=== PATIENT | male | born 1995 | race Caucasian/White ===

== ENCOUNTER 2018-08-18 23:18 | Observation (INO) ==
--- NOTE | 2018-08-19 00:27 | DR.GENAD ---
HPI Time Seen Time Seen by Provider: 08/19/18 00:22 HPI Comment HPI Comment: PATIENT IS 22YR OLD WHITE MALE WHO WORK AT [employer], WHERE THEY WORK IN HIGH ENVIR[employer]. HE GOT SICK TODAY AND STARTED HAVING INCREASIN GENERALIZE CRAMPING PAIN 6/10 ASSOCIATED WITH NAUSEA AND VOMITING. PATIENT IS WEAK, DIZZY A ND NOT FEELING WELL. NOT HOLDING DOWN FLUIDS. NO FEVER OR DYSURIA. Complaint/Symptoms Chief Complaint Doctors Comments: GENERALIZE PAIN AND WEAKNESS, MUSCLE CRAMPS AND NAUSEA AND VOMITING. Nurses notes reviewed Nurses Notes Review: Yes Source History Provided: Patient and Family Member Mode of Arrival Mode of Arrival: Wheelchair Timing Came on: Suddenly Duration Duration: Constant Duration: Days Location Location: GENERALIZE. Severity Severity: Severe Modifying Factors Worsens:: MOVEMENT Improves:: LYING STILL. 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 PMH PMH Past Surgical History: No Social History Do you use any recreational Drugs:: No ROS Review of Systems Constitutional: No Symptoms Reported, See HPI, Weakness, Fatigue and Loss of Appetite; negative Chills and Fever Eyes: No Symptoms Reported and See HPI; negative Eye Pain, Blurred Vision and Discharge ENTM: No Symptoms Reported, See HPI and Pulling on Ears; negative Ear Pain, Nose Discharge, Nose Congestion and Throat Pain Respiratoy: No Symptoms Reported and See HPI; negative Moist Cough, Short of Breath and Wheezing Cardiovascular: No Symptoms Reported and See HPI; negative Chest Pain, Edema and Palpitations Gastrointestinal/Abdominal: See HPI, Abdominal Pain, Nausea and Vomiting; negative Constipation and Diarrhea Genitourinary: No Symptoms Reported and See HPI; negative Dysuria, Frequency and Hematuria Neurological: No Symptoms Reported, See HPI, Headache and Dizziness; negative Seizure and Weakness Musculoskeletal: See HPI, Back Pain and Muscle Pain; negative Neck Pain Integumentary: See HPI and Dryness; negative Rash, Bruises and Juandice Hematologic/Lymphatic: No Symptoms Reported and See HPI; negative Easy Bruising, Swollen Glands and Lymphadenopathy Endocrine: No Symptoms Reported and See HPI; negative Flushing, Increased Thirst, Increased Urine and Decreased Appetite Psychiatric: No Symptoms Reported and See HPI All Other Systems: Reviewed and Negative PE Vital Signs Vitals: Temperature 97.4 F Pulse Rate [Left Brachial] 65 Pulse Rate 79 Respiratory Rate 18 Blood Pressure [Left Arm] 99/55 Blood Pressure 121/84 O2 Sat by Pulse Oximetry 97 General Limitations: No Limitations General Appearance: Alert and In No Apparent Distress; negative In Distress Head Head Exam: Normal Inspection, Atraumatic and Normocephalic Eyes Eye exam: Normal Appearance and PERRL; negative Scleral Icterus and Conjunctival Injection ENT ENT Exam: Normal Exam, Normal Oropharynx, Normal External Ear Exam, Mucous Membranes Dry and TM's Normal Bilaterally External Ear Exam: Normal External Inspection; negative Mastoid Tenderness, Pain with Movement and External Tenderness TM/Canal Exam: Bilateral: Normal Nose Exam: Normal Nose Exam; negative Sinus Tenderness, Nasal Deviation and Septal Hematoma Mouth Exam: Normal Inspection; negative Trismus, Lip Swelling and Tongue Swelling Throat Exam: Normal Inspection; negative Tonsillar Erythema, Tonsillomegaly and Tonsillar Exudate Neck Neck Exam: Normal Inspection, Full ROM and Trachea Midline; negative Tenderness, Meningismus and Lymphadenopathy Chest Chest Inspection: Normal Inspection and Symmetric Chest Wall Rise; negative Tenderness and Rash Respiratory Respiratory Exam: Normal Lung Sounds Bilat; negative Accessory Muscle Use, Chest Wall Tenderness and Respiratory Distress Respiratory Exam: Bilateral: Clear to Auscultation Cardiovascular Cardiovascular Exam: Regular Rate, Normal Rhythm and Normal Heart Sounds; negative Systolic Murmur and Diastolic Murmur Abdominal Exam Abdominal Exam: Normal Bowel Sounds, Soft and Tenderness Abdominal Tenderness: Diffuse and Moderate Extremities Extremities Exam: Normal Capillary Refill; negative Tenderness (TENSE MUSCLES.) and Edema Back Back Exam: Tenderness and Paraspinal Tenderness Neurologic Neurological Exam: Alert and Oriented X3; negative Motor Sensory Deficit Psychiatric Psychiatric Exam: Normal Affect and Normal Mood Skin Skin Exam: Dry; negative Rash and Erythema MDM Additional Information Additional Information Obtained From: Family Differential Diagnosis Differential Diagnosis: DEHYDRATION, HEAT CRAMPS, GENERALIZE WEAKNESS, GENERALIZE PAIN, UTI. COURSE Treatment Treatment: SEE ORDERS. 00:42 : NS 1L IV BOLUS, ZOFRAN 4MG IV AND TORADOL 30MG IV. 10:54 : NS 1L IV BOLUS. Reevaluation 1st: Improved (NAUSEA IMPROVING.) Consultation Consultation Comments: DISCUSS PATIENT WITH DR. FUNK. HE WII ADMIT PATIENT. Education/Counseling Education/Counseling: Patient and Family Educated On: Diagnosis ROR Labs Reviewed Laboratory Results Reviewed?: Yes Result Diagrams: 08/19/18 06:53 08/19/18 06:53 Laboratory: WBC 13.0 X10^3/uL (3.6-10.0) H 08/19/18 06:53 RBC 5.34 X10^6/uL (4.7-6.0) 08/19/18 06:53 Hgb 15.9 g/dL (13.5-18.0) D 08/19/18 06:53 Hct 45.8 % (42.0-54.0) 08/19/18 06:53 MCV 85.9 fL (80.0-100.0) 08/19/18 06:53 MCH 29.8 pg (27.0-34.0) 08/19/18 06:53 MCHC 34.7 g/dL (33.0-35.0) 08/19/18 06:53 RDW 12.9 % (11.6-16.5) 08/19/18 06:53 Plt Count 292 X10^3/uL (150.0-450.0) 08/19/18 06:53 MPV 7.7 fL (7.4-11.0) 08/19/18 06:53 Neut % (Auto) 74.0 % (42.0-75.0) 08/19/18 06:53 Lymph % (Auto) 17.2 % (21.0-51.0) L 08/19/18 06:53 [place] % (Auto) 7.8 % (0.0-13.0) 08/19/18 06:53 Eos % (Auto) 0.2 % (0.9-2.9) L 08/19/18 06:53 Baso % (Auto) 0.8 % (0.2-1.0) 08/19/18 06:53 Neut # (Auto) 9.6 x10^3/uL (2.2-4.8) H 08/19/18 06:53 Lymph # (Auto) 2.2 X10^3/uL (1.3-2.9) 08/19/18 06:53 [place] # (Auto) 1.0 x10^3/uL (0.3-0.8) H 08/19/18 06:53 Eos # (Auto) 0.0 x10^3/uL (0.0-0.2) 08/19/18 06:53 Baso # (Auto) 0.1 X10^3/uL (0.0-0.1) 08/19/18 06:53 Absolute Nucleated RBC 0.1 /100WBC 08/19/18 06:53 Sodium 139 mmol/L (136-145) 08/19/18 06:53 Corrected Sodium TNP 08/19/18 06:53 Potassium 4.2 mmol/L (3.5-5.1) 08/19/18 06:53 Chloride 102 mmol/L (98-107) 08/19/18 06:53 Carbon Dioxide 24.8 mmol/L (21-32) 08/19/18 06:53 BUN 33 mg/dL (7-18) H 08/19/18 06:53 Creatinine 1.77 mg/dL (0.70-1.30) H 08/19/18 06:53 Est GFR (MDRD) Af Amer > 60 (>60) 08/19/18 06:53 Est GFR (MDRD) Non-Af 52 (>60) L 08/19/18 06:53 Glucose 86 mg/dL (65-99) 08/19/18 06:53 Calcium 9.1 mg/dL (8.5-10.1) 08/19/18 06:53 Corrected Calcium TNP 08/19/18 06:53 Total Bilirubin 1.00 mg/dL (0.2-1.0) 08/19/18 06:53 AST 34 Units/L (15-37) 08/19/18 06:53 ALT 62 Units/L (12-78) 08/19/18 06:53 Alkaline Phosphatase 50 Units/L (46-116) 08/19/18 06:53 Total Protein 7.3 g/dL (6.4-8.2) 08/19/18 06:53 Albumin 4.0 g/dL (3.4-5.0) 08/19/18 06:53 Globulin 3.3 g/dL (2.5-4.5) 08/19/18 06:53 Albumin/Globulin Ratio 1.2 Ratio (1.1-2.1) 08/19/18 06:53 XRAY XRAY Interpreted by: Radiologist XRAY Findings: REPORT ON THIS RECORD NOTED AND DISCUSS WITH PATIENT. EKG [place]: Normal Rhythm: NSR Block: None Hypertrophy: None ST: Normal Diagnosis Discharge Problem: Acute dehydration, Heat cramp, initial encounter Heat effect Qualifiers: Encounter type: initial encounter Qualified Code(s): T67.9XXA - Effect of heat and light, unspecified, initial encounter Leukocytosis Qualifiers: Leukocytosis type: unspecified Qualified Code(s): D72.829 - Elevated white blood cell count, unspecified
[2018-08-19 00:31] VITALS: BMI 22.9
[2018-08-19] MEDS ORDERED: ZOFRAN INJ 4 MG VIAL IVP ONE (00:35)
[2018-08-19] MEDS ORDERED: NS 1000 ML 1,000 ML IV ONE ×2 (00:35→02:23)
[2018-08-19] MEDS ORDERED: TORADOL 30 MG VIAL IVP ONE (00:35)
[2018-08-19] MEDS ORDERED: NS 1000 ML 1,000 ML ONE ×2 (00:42→01:52)
[2018-08-19] MEDS ORDERED: ZOFRAN INJ 4 MG VIAL ONE (00:42)
[2018-08-19] MEDS ORDERED: TORADOL 30 MG VIAL ONE (00:54)
[2018-08-19 00:58] LABS: BASOPHILS # (AUTO) 0.1 X10^3/uL (0.0-0.1); BASOPHILS % (AUTO) 0.7 % (0.2-1.0); HEMATOCRIT 55.3 % (42.0-54.0); LYMPHOCYTES # (AUTO) 1.2 X10^3/uL (1.3-2.9); LYMPHOCYTES % (AUTO) 6.2 % (21.0-51.0); MEAN CORPUSCULAR HEMOGLOBIN 29.7 pg (27.0-34.0); MEAN CORPUSCULAR HGB CONC 34.6 g/dL (33.0-35.0); MEAN CORPUSCULAR VOLUME 85.8 fL (80.0-100.0); MONOCYTES # (AUTO) 0.7 x10^3/uL (0.3-0.8); MONOCYTES % (AUTO) 3.7 % (0.0-13.0); NEUTROPHILS # (AUTO) 17.3 x10^3/uL (2.2-4.8); NEUTROPHILS % (AUTO) 89.4 % (42.0-75.0); PLATELET COUNT 373 X10^3/uL (150.0-450.0); RED BLOOD COUNT 6.44 X10^6/uL (4.7-6.0); RED CELL DISTRIBUTION WIDTH 12.5 % (11.6-16.5); WHITE BLOOD COUNT 19.4 X10^3/uL (3.6-10.0)
[2018-08-19 01:07] LABS: HEMOGLOBIN 19.1 g/dL (13.5-18.0)
[2018-08-19 01:10] LABS: ALANINE AMINOTRANSFERASE 84 Units/L (12-78); ALBUMIN 5.7 g/dL (3.4-5.0); ALKALINE PHOSPHATASE 68 Units/L (46-116); ASPARTATE AMINO TRANSFERASE 45 Units/L (15-37); BLOOD UREA NITROGEN 34 mg/dL (7-18); CALCIUM 10.8 mg/dL (8.5-10.1); CARBON DIOXIDE 26.1 mmol/L (21-32); CHLORIDE 97 mmol/L (98-107); CREATININE 2.74 mg/dL (0.70-1.30); SODIUM 138 mmol/L (136-145); TOTAL PROTEIN 9.8 g/dL (6.4-8.2); eGFR NON BLACK RACES 32 (>60)
--- NOTE | 2018-08-19 06:07 | RAD ---
Chest, one view Indication: Leukocytosis, chest pain, shortness of breath Comparison: 03/19/2016 Findings: Heart is normal in size and the lungs are clear. No significant pleural effusion is identified. No pneumothorax. Impression: No acute chest process. Reported By:
[2018-08-19] MEDS ORDERED: ZOFRAN INJ 4 MG VIAL IVP PRN (06:44)
[2018-08-19 07:09] LABS: BASOPHILS # (AUTO) 0.1 X10^3/uL (0.0-0.1); BASOPHILS % (AUTO) 0.8 % (0.2-1.0); EOSINOPHILS % (AUTO) 0.2 % (0.9-2.9); HEMATOCRIT 45.8 % (42.0-54.0); HEMOGLOBIN 15.9 g/dL (13.5-18.0); LYMPHOCYTES # (AUTO) 2.2 X10^3/uL (1.3-2.9); LYMPHOCYTES % (AUTO) 17.2 % (21.0-51.0); MEAN CORPUSCULAR HEMOGLOBIN 29.8 pg (27.0-34.0); MEAN CORPUSCULAR HGB CONC 34.7 g/dL (33.0-35.0); MEAN CORPUSCULAR VOLUME 85.9 fL (80.0-100.0); MEAN PLATELET VOLUME 7.7 fL (7.4-11.0); MONOCYTES % (AUTO) 7.8 % (0.0-13.0); NEUTROPHILS # (AUTO) 9.6 x10^3/uL (2.2-4.8); PLATELET COUNT 292 X10^3/uL (150.0-450.0); RED BLOOD COUNT 5.34 X10^6/uL (4.7-6.0); RED CELL DISTRIBUTION WIDTH 12.9 % (11.6-16.5)
[2018-08-19 07:14] LABS: ALANINE AMINOTRANSFERASE 62 Units/L (12-78); ALKALINE PHOSPHATASE 50 Units/L (46-116); ASPARTATE AMINO TRANSFERASE 34 Units/L (15-37); BLOOD UREA NITROGEN 33 mg/dL (7-18); CALCIUM 9.1 mg/dL (8.5-10.1); CARBON DIOXIDE 24.8 mmol/L (21-32); CHLORIDE 102 mmol/L (98-107); CREATININE 1.77 mg/dL (0.70-1.30); SODIUM 139 mmol/L (136-145); TOTAL PROTEIN 7.3 g/dL (6.4-8.2); eGFR NON BLACK RACES 52 (>60)
[2018-08-19] MEDS: NS 1000 ML 1,000 ML IV SCH ×5 (07:29→23:27)
[2018-08-19 08:04] LABS: BILIRUBIN,URINE NEGATIVE (NEGATIVE); BLOOD/HEMOGLOBIN,URINE NEGATIVE (NEGATIVE); GLUCOSE, URINE NEGATIVE (NEGATIVE); KETONES,URINE 3+ (NEGATIVE); LEUKOCYTE ESTERASE ,URINE NEGATIVE (NEGATIVE); NITRITES,URINE NEGATIVE (NEGATIVE); PROTEIN,URINE 1+ (NEGATIVE); UROBILINOGEN,URINE NORMAL (NORMAL)
[2018-08-19 08:12] LABS: APPEARANCE,URINE CLEAR (CLEAR); COLOR,URINE YELLOW (YELLOW)
[2018-08-19 08:14] LABS: RBC,URINE NONE SEEN /HPF (NONE SEEN)
[2018-08-19 08:15] LABS: BACTERIA,URINE NEGATIVE /HPF (NEGATIVE); SQUAMOUS EPITHELIAL CELL,UR RARE /HPF (NEGATIVE)
[2018-08-19] MEDS: MORPHINE SULFATE INJ 4 MG IVP PRN ×2 (11:09→18:28)
[2018-08-19] MEDS ORDERED: VALIUM PO ONE (14:39)
[2018-08-20] MEDS: NS 1000 ML 1,000 ML IV SCH (04:11)
[2018-08-20 05:30] LABS: BASOPHILS # (AUTO) 0.1 X10^3/uL (0.0-0.1); BASOPHILS % (AUTO) 0.6 % (0.2-1.0); EOSINOPHILS # (AUTO) 0.1 x10^3/uL (0.0-0.2); EOSINOPHILS % (AUTO) 1.6 % (0.9-2.9); HEMOGLOBIN 14.3 g/dL (13.5-18.0); LYMPHOCYTES # (AUTO) 3.5 X10^3/uL (1.3-2.9); LYMPHOCYTES % (AUTO) 39.7 % (21.0-51.0); MEAN CORPUSCULAR HGB CONC 34.1 g/dL (33.0-35.0); MEAN CORPUSCULAR VOLUME 87.9 fL (80.0-100.0); MEAN PLATELET VOLUME 8.4 fL (7.4-11.0); MONOCYTES # (AUTO) 0.5 x10^3/uL (0.3-0.8); MONOCYTES % (AUTO) 5.5 % (0.0-13.0); NEUTROPHILS # (AUTO) 4.6 x10^3/uL (2.2-4.8); NEUTROPHILS % (AUTO) 52.6 % (42.0-75.0); PLATELET COUNT 238 X10^3/uL (150.0-450.0); RED BLOOD COUNT 4.78 X10^6/uL (4.7-6.0); RED CELL DISTRIBUTION WIDTH 12.7 % (11.6-16.5); WHITE BLOOD COUNT 8.8 X10^3/uL (3.6-10.0)
[2018-08-20 05:52] LABS: ALANINE AMINOTRANSFERASE 38 Units/L (12-78); ALKALINE PHOSPHATASE 40 Units/L (46-116); ASPARTATE AMINO TRANSFERASE 25 Units/L (15-37); BLOOD UREA NITROGEN 16 mg/dL (7-18); CARBON DIOXIDE 25.1 mmol/L (21-32); CHLORIDE 110 mmol/L (98-107); COR CA(FOR HYPOALB) 8.8 mg/dL (8.5-10.1); CREATINE KINASE 274 Units/L (39-308); CREATININE 1.07 mg/dL (0.70-1.30); SODIUM 143 mmol/L (136-145); TOTAL PROTEIN 5.5 g/dL (6.4-8.2); eGFR NON BLACK RACES > 60 (>60)
[2018-08-20 10:31] VITALS: BP 89/52
== END 2018-08-20 11:45 | disposition home or self-care (01) ==
LOC: MED/SURG 23:42 → ER 23:42 → MED/SURG 08-19 02:36
PROVIDERS: ADMIT Obstetrics & Gynecology Obstetrics; ATTEND Obstetrics & Gynecology Obstetrics
DX: N17.8 Other acute kidney failure; R11.2 Nausea with vomiting, unspecified; R25.2 Cramp and spasm; Y92.89 Other specified places as the place of occurrence of the external cause; X30.XXXA Exposure to excessive natural heat, initial encounter; D72.828 Other elevated white blood cell count; R94.4 Abnormal results of kidney function studies; E86.0 Dehydration; R53.1 Weakness
CPT/HCPCS: 36415; 71010; 71045; 80053; 81001; 82550; 83735; 85025; 96365; 96367; 96374; 96375; 99284; A4222; G0378; J1885; J2270; J2405; J7030